=== PATIENT | female | born 2000 | race Hispanic/Latino ===

== ENCOUNTER 2021-08-28 06:43 | Outpatient (CLI) | payer MEDICAID ==
--- NOTE | 2021-08-28 08:37 | Ultrasound Report ---
ULTRASOUND OBSTETRIC LIMITED INDICATION / CLINICAL INFORMATION: labor. Clinical Gestational Age (GA): 20.3 weeks.days COMPARISON: None available. FINDINGS: HEART RATE (beats per minute): 152 AMNIOTIC FLUID INDEX (cm) = visually normal. Not measured (normal = 7-24 cm) PRESENTATION: Transverse. ADDITIONAL FINDINGS: No placental abruption IMPRESSION: 1. No significant abnormality. Signer Name: Jp Goldberg MD Signed: 08/28/2021 8:33 AM Workstation Name: [id number]
[2021-08-28] MEDS ORDERED: LACTATED RINGERS 500 ML IV ONE (08:45)
[2021-08-28 09:42] LABS: Bilirubin,Urine SM (Negative); Blood,Urine SM (Negative); Color,Urine Amber (Yellow)
[2021-08-28 09:46] LABS: Bacteria,Urine 1+ /HPF (Negative); Calcium Oxalate Crystals,Urine 3+; Hyaline Casts,Urine 2 /LPF; Mucus,Urine 3+ /HPF
[2021-08-28 10:04] VITALS: BP 119/65
[2021-08-28 11:42] LABS: Ictotest,Urine Negative (Negative)
== END 2021-08-28 10:15 | disposition home or self-care (01) ==
LOC: TRG 06:43 → APU 06:46 → TRG 10:15
PROVIDERS: ATTEND Obstetrics & Gynecology
DX: O26.852 Spotting complicating pregnancy, second trimester (principal); O26.892 Other specified pregnancy related conditions, second trimester; R10.9 Unspecified abdominal pain; Z3A.20 20 weeks gestation of pregnancy
CPT/HCPCS: 76815; 81001; 87086